=== PATIENT | male | born 1985 | race Caucasian/White ===

== ENCOUNTER 2020-02-25 13:20 | Emergency (ER) | payer OTHER ==
[~2020-02-25] VITALS: Ht 180.3 cm; Wt 102.1 kg
[2020-02-25 13:26] VITALS: BP_SYST 147
[2020-02-25 13:49] VITALS: BP_SYST 147
[2020-02-25] MEDS ORDERED: LIDOCAINE/EPI 1% 1:100000 20 ML VIAL INJ ONE (13:57)
[2020-02-25] MEDS ORDERED: LIDOCAINE JECT 2% PF 100 MG/5ML SYRINGE ONE (13:59)
[2020-02-25] MEDS ORDERED: DIPH-TET-PERTUS Vaccine 0.5 ML VIAL (ADACEL) I.M. ONE (14:00)
[2020-02-25] MEDS ORDERED: BACITRACIN 1 GM OINT TP ONE (14:00)
[2020-02-25] MEDS ORDERED: LIDOCAINE 1% 10 MG/ML, 20 ML MDV INJ ONE (14:00)
[2020-02-25] MEDS ORDERED: LIDOCAINE 1%, 20 ML MDV 20 ML ONE (14:02)
== END 2020-02-25 13:49 | disposition home or self-care (01) ==
LOC: SED 13:20
DX: S61.213A Laceration without foreign body of left middle finger without damage to nail, initial encounter (principal); W25.XXXA Contact with sharp glass, initial encounter; Y93.89 Activity, other specified; Y92.89 Other specified places as the place of occurrence of the external cause; Y99.8 Other external cause status
CPT/HCPCS: 12002; 73140; 90471; 90715; 99283; J2001

== ENCOUNTER 2020-11-18 09:54 | Emergency (ER) | payer OTHER ==
[~2020-11-18] VITALS: Ht 172.7 cm; Wt 104.3 kg
[2020-11-18 10:27] VITALS: BP_SYST 140
--- NOTE | 2020-11-18 10:29 | NUR ---
IN [facility] 2
--- NOTE | 2020-11-18 12:11 | NUR ---
AMBULATED TO BED 1
[2020-11-18] MEDS ORDERED: LIDOCAINE 1% 10 MG/ML, 20 ML MDV INJ ONE (12:15)
--- NOTE | 2020-11-18 12:20 | NUR ---
DR OCAMPO IN TO ASSESS
--- NOTE | 2020-11-18 12:40 | NUR ---
WOUND CARE. DERMABOND
[2020-11-18 12:55] VITALS: BP_SYST 136
--- NOTE | 2020-11-18 12:58 | NUR ---
Patient given written and verbal discharge instructions and verbalizes understanding. ER MD discussed with patient the results and treatment provided. Patient in stable condition. ID arm band removed. . Patient educated on pain management and to follow up with PMD. Pain Scale . Opportunity for questions provided and answered.
== END 2020-11-18 12:58 | disposition home or self-care (01) ==
LOC: SED 09:54
DX: S81.811A Laceration without foreign body, right lower leg, initial encounter (principal); W22.8XXA Striking against or struck by other objects, initial encounter; Y93.89 Activity, other specified; Y92.89 Other specified places as the place of occurrence of the external cause; Y99.8 Other external cause status
CPT/HCPCS: 99282